=== PATIENT | male | born 1995 ===

== ENCOUNTER 2019-02-13 08:24 | Emergency (ER) | payer SELFPAY ==
[2019-02-13] MEDS ORDERED: DECADRON IM ONE (08:46)
[2019-02-13] MEDS ORDERED: NORCO PO ONE (08:46)
[2019-02-13] MEDS ORDERED: BICILLIN L-A IM ONE (09:40)
--- NOTE | 2019-02-13 09:47 | Emergency Department Report ---
ED ENT HPI - General Chief complaint: Sore Throat Stated complaint: FEVER/SORE THROAT Time Seen by Provider: 02/13/19 08:45 Source: patient Mode of arrival: Ambulatory Limitations: No Limitations - History of Present Illness MD complaint: sore throat -: days(s) (3) Location: throat Severity: moderate Severity scale (0 -10): 6 Quality: burning, aching, constant Consistency: constant Improves with: none Worsens with: swallowing Associated Symptoms: fever, pain with swallowing, sore throat. denies: cough, gum swelling, toothache, tinnitus, hearing loss, discharge from ear, rhinorrhea - Related Data Previous Rx's Medication Instructions Recorded Last Taken Type HYDROcodone/ACETAMINOPHEN 15 ml PO Q6H PRN #150 solution 02/13/19 Unknown Rx [Hydrocodon-Acetamin 7.5-325/15] prednisoLONE [Prednisolone] 45 mg PO DAILY 5 Days solution 02/13/19 Unknown Rx Allergies Allergy/AdvReac Type Severity Reaction Status Date / Time No Known Allergies Allergy Unverified 02/13/19 08:38 ED Dental HPI - General Chief complaint: Sore Throat Stated complaint: FEVER/SORE THROAT Time Seen by Provider: 02/13/19 08:45 Source: patient Mode of arrival: Ambulatory Limitations: No Limitations - Related Data Previous Rx's Medication Instructions Recorded Last Taken Type HYDROcodone/ACETAMINOPHEN 15 ml PO Q6H PRN #150 solution 02/13/19 Unknown Rx [Hydrocodon-Acetamin 7.5-325/15] prednisoLONE [Prednisolone] 45 mg PO DAILY 5 Days solution 02/13/19 Unknown Rx Allergies Allergy/AdvReac Type Severity Reaction Status Date / Time No Known Allergies Allergy Unverified 02/13/19 08:38 ED Review of Systems ROS: Stated complaint: FEVER/SORE THROAT Other details as noted in HPI Comment: All other systems reviewed and negative ED Past Medical Hx - Social History Smoking Status: Former Smoker Substance Use Type: None - Medications Home Medications: Home Medications Medication Instructions Recorded Confirmed Last Taken Type HYDROcodone/ACETAMINOPHEN 15 ml PO Q6H PRN #150 solution 02/13/19 Unknown Rx [Hydrocodon-Acetamin 7.5-325/15] prednisoLONE [Prednisolone] 45 mg PO DAILY 5 Days solution 02/13/19 Unknown Rx ED Physical Exam - General Limitations: No Limitations General appearance: alert, in no apparent distress - Head Head exam: Present: atraumatic, normocephalic - Eye Eye exam: Present: normal appearance, PERRL, EOMI - ENT ENT exam: Present: mucous membranes moist - Expanded ENT Exam Expanded Throat exam: Positive: tonsillar erythema, tonsillomegaly, tonsillar exudate - Neck Neck exam: Present: normal inspection, lymphadenopathy (anterior cervical ) - Respiratory Respiratory exam: Present: normal lung sounds bilaterally. Absent: respiratory distress, wheezes, rales, rhonchi - Cardiovascular Cardiovascular Exam: Present: regular rate, normal rhythm, normal heart sounds. Absent: systolic murmur, diastolic murmur, rubs, gallop - GI/Abdominal GI/Abdominal exam: Present: soft, normal bowel sounds. Absent: distended, tenderness, guarding - Rectal Rectal exam: Present: deferred - Extremities Exam Extremities exam: Present: normal inspection - Back Exam Back exam: Present: normal inspection - Neurological Exam Neurological exam: Present: alert, oriented X3 - Psychiatric Psychiatric exam: Present: normal affect, normal mood - Skin Skin exam: Present: warm, dry, intact, normal color. Absent: rash ED Medical Decision Making - Lab Data Lab Results 02/13/19 Range/Units 08:49 Monoscreen Negative (Negative) - Medical Decision Making Patient's Monospot is negative. Patient meets [facility] criteria for antibiotic treatment. Patient's taken several doses of amoxicillin this was a prescription of a family member with minimal relief. Patient is started on Bicillin as well as medications for symptomatic relief and be discharged home. Critical care attestation.: If time is entered above; I have spent that time in minutes in the direct care of this critically ill patient, excluding procedure time. ED Disposition Clinical Impression: Exudative pharyngitis Disposition: - TO HOME OR SELFCARE Is pt being admited?: No Does the pt Need Aspirin: No Condition: Stable Instructions: Pharyngitis (ED) Referrals: AMY DOYLE MD [Referring] - 3-5 Days Time of Disposition: 09:48
[2019-02-13 10:11] VITALS: BP 131/74
== END 2019-02-13 10:10 | disposition home or self-care (01) ==
LOC: ED 08:24
DX: J02.9 Acute pharyngitis, unspecified (principal); Z87.891 Personal history of nicotine dependence; Z79.899 Other long term (current) drug therapy
CPT/HCPCS: 36415; 86308; 96372; 99283; J0561; J1100